=== PATIENT | male | born 1950 | race Caucasian/White ===

== ENCOUNTER → 2025-02-20 | Outpatient (CLI) | payer MEDICARE, BC, SELFPAY ==
--- NOTE | 2025-02-20 10:21 | XR_ITS ---
Examination: Lumbar spine, 5 views Technique: Lumbar spine AP, lateral, coned lateral lower lumbar spine, bilateral obliques 5 views Exam date and time: February 20, 2025 1038 hours INDICATIONS: Low back pain several months FINDINGS: Lumbar levoscoliosis 12 degrees Diffuse moderate to advanced lumbar degenerative disc disease No acute fracture Chronic osteoporotic compression T12 No spondylolisthesis IMPRESSION: Diffuse moderate to advanced lumbar degenerative disc disease with significant spinal stenosis
[2025-02-20 12:26] LABS: Glucose Estimated Average 120 mg/dL (80-131); Hemoglobin A1C 5.8 % Hgb (4.8-6.0)
[2025-02-27 06:37] LABS: Testosterone, Free,Dialysis 64.1 pg/mL (30.0-135.0); Testosterone, Total, Dialysis 338 ng/dL (250-1100)
== END | disposition home or self-care (01) ==
LOC: CDIM 10:17 → COPL 11:06
PROVIDERS: Chiropractor; PCP Family Medicine; Referring Provider Family Medicine; Visit Provider Radiology Diagnostic Radiology
DX: M51.369 Other intervertebral disc degeneration, lumbar region without mention of lumbar back pain or lower extremity pain (principal); M48.061 Spinal stenosis, lumbar region without neurogenic claudication; E08.9 Diabetes mellitus due to underlying condition without complications
CPT/HCPCS: 36415; 72110; 83036; 84402; 84403